=== PATIENT | male | born 1965 | race Caucasian/White ===

== ENCOUNTER 2024-03-07 00:49 | Day surgery (SDC) | payer BC, SELFPAY ==
[2024-03-05 15:32] VITALS: BMI 27.5
[2024-03-07 10:09] VITALS: BP 138/86; PULSE 77; RESP 18; TEMP 36.1; O2SAT 98; BMI 28.3
--- NOTE | 2024-03-07 10:17 | WPDANESEPPF ---
Anes - Initial Pre Proc Eval Procedure: Operation Date: 03/07/24 11:30 Proposed Procedures p Esophagogastroduodenoscopy - Burke Smith MD Date/Time: 03/07/24 10:17 Surgeon: Burke Smith MD Pre Op Diagnosis: Dysphagia Patient Data Age: 58 Gender: M Height: 1.65 m Weight: 77.4 kg Last Vital Signs Temp 36.1 C L 03/07/24 10:09 Pulse 77 03/07/24 10:09 Resp 18 03/07/24 10:09 BP 138/86 03/07/24 10:09 Pulse Ox 98 03/07/24 10:09 O2 Del Method Room Air 03/07/24 10:09 Allergies Allergy/AdvReac Type Severity Reaction Status Date / Time No Known Allergies Allergy Verified 03/07/24 10:08 Home Medications Medication Instructions Recorded Confirmed Type cyclobenzaprine 10 mg tablet 10 mg PO HS 03/05/24 03/07/24 History Patient hx anesthesia problems: none Family hx anesthesia problems: none Results Review: All pre-operative results and documents have been reviewed as part of the pre-operative evaluation. [facility] Past Medical History Medical History (Updated 03/07/24 @ 10:17 by Roberth Andrade MD) Overweight Social History Social History Smoking status: Never smoker Alcohol intake: current Substance use: never Substance use type: does not use Living arrangements: with family Spiritual care concerns: No Anes - Eval Final PreProcedure Day of Procedure 03/07/24 10:17 Patient weight: overweight Heart: regular rate and rhythm Lungs: clear to auscultation Airway: Mallampati scale class II Neurological: alert and oriented Last oral intake: >/= 8 hours ASA classification: II Emergent: no Anesthetic plan: proceed Anesthesia type and monitoring: general GIVS and standard monitoring Results Review: All pre-operative results and documents have been reviewed as part of the pre-operative evaluation. Informed Consent: The patient's anesthetic plan and its attendant risks and benefits were discussed with the patient/family/POA. Questions were solicited and answers provided to the satisfaction of the patient/family/POA.
[2024-03-07] MEDS: LACTATED RINGERS 1,000 ML 150 ML IV CONT (10:23)
--- NOTE | 2024-03-07 10:41 | PM.HPGS ---
History of Present Illness History of Present Illness Consent: Risks, benefits, and alternatives have been discussed and questions answered. Patient agrees to proceed with procedure. Chief complaint: Dysphagia Narrative: Ariel Jiang is a 58 year old male here for first EGD, intermittent dysphagia, he is not taking any ppi. Review of Systems Review of Systems: All systems reviewed & are unremarkable except as noted in HPI and below PMFSH Past Medical History Medical History (Updated 03/07/24 @ 10:42 by Burke Smith MD) Dysphagia Overweight Social History Social History Smoking status: Never smoker Alcohol intake: current Substance use: never Substance use type: does not use Living arrangements: with family Spiritual care concerns: No Meds Home Medications and Allergies Home Medications Medication Instructions Recorded Confirmed Type cyclobenzaprine 10 mg tablet 10 mg PO HS 03/05/24 03/07/24 History Allergies Allergy/AdvReac Type Severity Reaction Status Date / Time No Known Allergies Allergy Verified 03/07/24 10:08 Vital Signs Vital Signs - 24 hr 03/07/24 10:09 Temperature 97 F L Pulse Rate 77 Respiratory Rate 18 Blood Pressure 138/86 Pulse Oximetry 98 Oxygen Delivery Room Air Exam Const: General: comfortable and no acute distress HENMT: Face/Nose/Sinus: Normal nares present Eyes: General: appearance normal, both eyes and all related structures Neck: Neck: no JVD Resp: Auscultation: clear to auscultation bilaterally Cardio: Rate: regular rate Rhythm: regular rhythm GI: Inspection: non-distended GI Palp: Yes Soft to palpation Skin: General skin exam: normal color Neuro: General: gait normal Speech: normal speech Extrem: General: normal to inspection Psych: Mental Status: mental status grossly normal Assessment and Plan Assessment and plan (1) Dysphagia: Code(s): R13.10 - Dysphagia, unspecified Status: Acute Assessment and Plan: egd to assess
[2024-03-07 10:55] VITALS: BP 119/70; PULSE 80; RESP 17; O2SAT 94
[2024-03-07 11:05] VITALS: BP 104/66; PULSE 74; RESP 18; O2SAT 94
[2024-03-07 11:15] VITALS: BP 118/71; PULSE 69; RESP 18; O2SAT 94
== END 2024-03-07 11:23 | disposition home or self-care (01) ==
PROVIDERS: PCP Internal Medicine; Visit Provider Internal Medicine Gastroenterology
PROC: 0DJ08ZZ Inspection of Upper Intestinal Tract, Via Natural or Artificial Opening Endoscopic (ICD-10-PCS; CPT 43235; principal; 2024-03-07 11:30)
DX: K20.0 Eosinophilic esophagitis (principal); K22.2 Esophageal obstruction; K44.9 Diaphragmatic hernia without obstruction or gangrene; K29.70 Gastritis, unspecified, without bleeding
CPT/HCPCS: 43249; 43239; 88305; C1726; J2704; J7120

== ENCOUNTER 2024-12-25 02:31 | Day surgery (SDC) | payer OTHER, SELFPAY ==
[2024-12-11 14:33] VITALS: BMI 29.9
--- OUTSIDE RECORDS SUMMARY | 2024-12-25 02:33 | XMS_ITS | Continuity of Care Document ---
Author Organization [facility] Address [address] [place] [address] [place] [address] Phone Care Team Providers Care Electrical Prospecting Observer Name Role Phone Mya HERNANDEZ FACS, Terrance Unavailable Unavailab le Allergies, Adverse Reactions, Alerts Substance Reaction Status Criticality No Known allergies Procedures Procedure Date Office/outpatient Visit, [facility] Advance Directives Directive Yes / No Effective Date File Name Resuscitation Not Answered N/A N/A Life Support Not Answered N/A N/A Intubation Not Answered N/A N/A Antibiotics Not Answered N/A N/A IV Fluid Support Not Answered N/A N/A Tube Feed Not Answered N/A N/A Other Directive N/A N/A WARNING:The information contained in this section is historical and is provided for information only and does not constitute a legal document or any assurance that the information is still accurate. Please verify the information with the vera of the legal document before using it for clinical purposes. Encounters Encounter Description Practice Location Reason(s) For Visit Diagnoses Date Provider Providers Copied on Encounter Office/outpat ient Visit, [facility], [address] [place] [address] [address], [place], [place], [id number], tel:[phone] SEC Julian N Lindbergh CORNEAL ULCER NOS 1 Mya Carlos. [address] [place] [address] Drive, [address], [place], [place], [id number], . tel:[phone] Referring Provider: Virginia Sanchez, [facility] [address], [address]. tel:[phone] Family History Family Member Type Diagnosis Age At Onset Problem (finding) Grandmother (p) Problem (finding) glaucoma Payers Payer name Insurance type Covered alliance party ID Javier leyva(s) [facility] CI [id number] Social History Type Description Quantity Date Captured Comments Alcohol Use Details No Caffeine Use Details No Tobacco Use Status No Information Smoking Status No Information Sex Male Chief Complaint And Reason For Visit No Information Reason For Referral Reason For Referral No Information History Of Present Illness Encounter Date Complaint History Of Prese nt Illness No Information Functional Status Date Functional Assessmen t No Information Instructions Date Instruction Additional Infor [place] - TUE WITH DR. FRANKLIN FOR FOLLO WUP Related to CORNEAL ULCER NOS CORNEAL ULCER , OD - will treat with meds. LIKELY STAPH BACTERIA - VIGAMOX 3 GTTS Q 1 MIN APART EVERY 2 HOURS, SCOPALAMINE NOT RECOMMENDED. 1 DROP HOMEATROPINE GIVEN OD PRIOR TO LEAVING THE OFFICE. CULTURE TODAY. REC THROWING OUT CONTACT LENSES, ABD D/C WEAR UNTIL OTHERWISE SPECIFIED. Related to CORNEAL ULCER NOS Assessments Type Assessment Date No Information Patient Care Teams Name Effective Dates (start - stop) Status Members No Information
--- OUTSIDE RECORDS SUMMARY | 2024-12-25 02:33 | XMS_ITS | Encounter Summary ---
Author Organization [facility] Address [address] [place] [address] Care Team Providers Care Dog Raiser Name Role Phone Redd Kumar MD Unavailable [phone] Nikos Lea MD Primary Care Provider [phone] Encounter Details Date Type Department Care Team (Late st Contact Info) Description 02/21/[address] [facility] Care Pathology Lab [address] [place] [address] Deanna Parks MD [address] [place] [address] Elevated prostate specific antigen (PSA) Social History Tobacco Use Types Packs/Day Years Used Date Smoking Tobacco: Never Assessed Sex and Gender Information Value Date Recorded Sex Assigned at Not on file Legal Sex Male 4:48 PM CDT Gender Identity Not on file Sexual Orientation Not on file documented as of this encounter Plan of Treatment Not on file documented as of this encounter Visit Diagnoses Diagnosis Elevated prostate specific antigen (PSA) documented in this encounter Care Teams Dog Raiser Relationship Specialty Start Date End Date Nikos Lea MD [address] [place] [address] PCP - General Internal Medicine 06/26/20 Redd Kumar MD [address] [place] [address] Neurology 06/25/20 documented as of this encounter
--- OUTSIDE RECORDS SUMMARY | 2024-12-25 02:33 | XMS_ITS | Encounter Summary ---
Author Organization [facility] Address [address] [place] [address] Care Team Providers Care Dip Stand Loader Name Role Phone Redd Kumar MD Unavailable [phone] Nikos Lea MD Primary Care Provider [phone] Encounter Details Date Type Department Care Team (Late st Contact Info) Description 08/05/2023 Lab Requisition [facility] - DermPath Lab [address] [facility], [place] [address] Bruno Means Jr., MD [address] [facility] [address] [place] [address] Social History Tobacco Use Types Packs/Day Years Used Date Smoking Tobacco: Never Smokeless Tobacco: Never Alcohol Use Standard Drinks/Week Comments Not Currently 0 (1 standard drink = 0.6 oz pur e alcohol) Sex and Gender Information Value Date Recorded Sex Assigned at Not on file Legal Sex Male 4:48 PM CDT Gender Identity Not on file Sexual Orientation Not on file documented as of this encounter Plan of Treatment Not on file documented as of this encounter Procedures Procedure Name Priority Date/Time Associated Diagnosis Comments DERMATOPATHOLOGY Routine 08/04/2023 12:0 0 AM TEACHER PRIVATE documented in this encounter Results * DERMATOPATHOLOGY (08/04/2023 12:00 AM TEACHER PRIVATE) Case Report Dermatopathology Report Case: [id number] Authorizing Provider: Bruno Means Jr., MD Collected: 08/04/2023 12:00 AM Ordering Location: [facility] DermPath Lab Received: 08/05/2023 12:38 PM Pathologist: Faith Cooley MD Specimen: Skin, left central lateral neck 1:25 PM [facility] DERMATOPATHOLOGY LABORATORY Final Diagnosis Specimen A. SKIN, left central lateral neck: BASAL CELL CARCINOMA (C44.41) NOT PRESENT AT MARGIN DERMAL SCAR (L90.5) 1:25 PM [facility] DERMATOPATHOLOGY LABORATORY Clinical History Basal Cell Carcinoma. Check Margins. 1:25 PM [facility] DERMATOPATHOLOGY LABORATORY Gross Description Specimen A: Received is one formalin filled container labeled with the patient's name and designated left central lateral neck.The specimen consists of an ellipse measuring [id number] mm and is oriented with the suture/notch at the 12 o'clock position labeled on the requisition as Superior. The 12 to 6 o'clock margin is inked green. The 6 o'clock to 12 o'clock margin is inked black. The 12 o'clock tip is submitted in cassette 1. The 6 o'clock tip is submitted in cassette 2. The remainder of the ellipse is serially sectioned and submitted in cassettes 3-4. Jar 0. 1:25 PM [facility] DERMATOPATHOLOGY LABORATORY Microscopic Description Specimen A. SKIN, left central lateral neck: Within the dermis there are aggregates of basaloid cells with a high nuclear to cytoplasmic ratio and peripheral palisading. This lesion is not present at the margin of the specimen. There are fibroblasts and collagen bundles oriented parallel to the skin surface with elongated blood vessels, some of which are oriented perpendicular to the skin surface. 1:25 PM [facility] DERMATOPATHOLOGY LABORATORY Disclaimer An external and internal positive and negative controls are appropriate for the histochemical, immunohistochemical and immunofluorescence stain(s) in this case (if any), except where stated explicitly. The performance characteristics of the stain(s) cited in this report were developed and its performance characteristic determined by the Dermatopathology Laboratory at [facility], directed by Dr. Shanna Reese. These tests need not be, and therefore are not, approved by the [place] Food and Drug Administration. The tests are used for clinical purposes. Billing Codes Specimen Charges Stain Charges 79239 1 12/27/202 3 1:25 PM TEACHER PRIVATE DERMATOPATHOLOGY LABORATORY Embedded Images 3 1:25 PM [facility] PRIVATE DERMATOPATHOLOGY LABORATORY Pathology/Cytolog y TISSUE SPECIMEN FROM SKIN / Unknown 08/04/2023 08/05/2023 12:38 PM TEACHER PRIVATE Bruno Means Jr., MD LAB - PATHOLOGY/CYTOLOG Y ORDERABLES Final Result DERMATOPATHOLOGY LABORATORY [facility] - Department of Dermatology [facility] [address] [place] [address], [address] [phone] documented in this encounter Visit Diagnoses Not on filedocumented in this encounter Care Teams Dip Stand Loader Relationship Specialty Start Date End Date Nikos Lea MD [address] [place] [address] PCP - General Internal Medicine 06/26/20 Redd Kumar MD [address] [place] [address] Neurology 06/25/20 documented as of this encounter
--- OUTSIDE RECORDS SUMMARY | 2024-12-25 02:33 | XMS_ITS | Clinical Summary ---
Author Organization [facility] Address [address] [facility] [place] [address] Care Team Providers Care Tool Profiling Machine Set Up Operator Name Role Phone Redd Kumar MD Unavailable [phone] Nikos Lea MD Primary Care Provider [phone] Source Comments [facility],non-owned Affiliates and Associated Physician Practices is amultiple site organization consisting of ambulatory clinics and hospital sitesin [place], [place], [place] and [place]. This disclosure is being madepursuant to the Care Everywhere program and may not contain all information available regarding this patient. Last updated 18.[employer] Allergies No known active allergies Medications * Be aware that medications may not be up to date on this document. Alwaysverify current medications with the patient. No known medications Family History Medical History Relation Name Comments Asthma Brother CVA Father High Cholesterol Father Thyroid Disease Mother Relation Name Status Comments Brother Father Mother Social History Tobacco Use Types Packs/Day Years Used Date Smoking Tobacco: Never Smokeless Tobacco: Never Alcohol Use Standard Drinks/Week Comments Not Currently 0 (1 standard drink = 0.6 oz pur e alcohol) Sex and Gender Information Value Date Recorded Sex Assigned at Not on file Legal Sex Male 4:48 PM CDT Gender Identity Not on file Sexual Orientation Not on file Last Filed Vital Signs Vital Sign Reading Time Taken Comments Blood Pressure 122/70 06/26/2020 10:34 AM TUNNEL FORM PLACING SUPERVISOR Pulse 68 06/26/2020 10:34 AM TUNNEL FORM PLACING SUPERVISOR Temperature - - Respiratory Rate 14 06/26/2020 10:34 AM TUNNEL FORM PLACING SUPERVISOR Oxygen Saturation 97% 06/26/2020 10:34 AM TUNNEL FORM PLACING SUPERVISOR Inhaled Oxygen Concentration - - Weight 76.7 kg (169 lb) 06/26/2020 10:34 AM TUNNEL FORM PLACING SUPERVISOR Height 165.1 cm (5' 5 ) 06/26/2020 10:34 AM TUNNEL FORM PLACING SUPERVISOR Body Mass Index 28.12 06/26/2020 10:34 AM TUNNEL FORM PLACING SUPERVISOR Plan of Treatment Health Maintenance Due Date Last Done Comments COLOGUARD (AGES 45-75) - COL ON CA SCREENING 1965 COLON MONITORING 1963 COLONOSCOPY - COLON CA SCREENING 1963 CT COLONOGRAPHY - COLON CA SCREENING 1965 Colorectal Cancer Screening 1963 FIT - COLON CA SCREENING 1963 FLEX SIG - COLON CA SCREENING 1963 LIPID TESTING 1963 HIV SCREENING 1978 HEPATITIS C SCREENING 08/04/1981 DTAP/TDAP/TD VACCINES (1 - Tdap) 1982 PNEUMOCOCCAL VACCINE 50+ (1 of 1 - PCV) 2013 ZOSTER VACCINE (1 of 2) 2013 SCREENING FOR DIABETES 06/26/2020 COVID-19 VACCINE (1 - 2023-2 5 season) 2024 DEPRESSION SCREENING 08/15/2024 INFLUENZA VACCINE (Season Ended) 2025 Respiratory Syncytial Virus (RSV) Vaccine Pt: or over 60 yrs (1 - 1-dose 75+ series) 2038 HEPATITIS B VACCINE Aged Out No longe r eligible based on patient's age to complete this topic HIB VACCINE Aged Out No longer eligi ble based on patient's age to complete this topic HPV VACCINE Aged Out No longer eligi ble based on patient's age to complete this topic MENINGOCOCCAL (Group B) VACC INE SHARED DECISION-MAKING Aged Out No longer eligibl e based on patient's age to complete this topic MENINGOCOCCAL GROUPS A/C/Y/W VACCINE Aged Out No longer eligible b ased on patient's age to complete this topic Insurance [employer] * Guarantor: AD SANCHEZ Account Type Relation to Patient Date of Phone Billing Address Personal/Family [address] [place] [address] [facility] SELF PAY NO INSURANCE Member Subscriber Plan / Payer (Ef fective for All Dates) Name:Ad Sanhcez Member ID:Not on file Relation to Subscriber:Not on file Name:AD SANCHEZ Subscriber ID:Not on file Address: [address] [place] [address] Payer ID:Not on file Group ID:Not on file Type:Self Pay Address: [place], [place] * Guarantor: AD SANCHEZ Account Type Relation to Patient Date of Phone Billing Address Personal/Family [address] [place] [address] [facility] SELF PAY NO INSURANCE Member Subscriber Plan / Payer (Ef fective for All Dates) Name:Ad Sanchez Member ID:Not on file Relation to Subscriber:Not on file Name:AD SANCHEZ Subscriber ID:Not on file Address: [address] [place] [address] Payer ID:Not on file Group ID:Not on file Type:Self Pay Address: [place], [place] * Guarantor: AD SANCHEZ Account Type Relation to Patient Date of Phone Billing Address Personal/Family [address] [place] [address] [facility] SELF PAY NO INSURANCE Member Subscriber Plan / Payer (Ef fective for All Dates) Name:Ad Sanchez Member ID:Not on file Relation to Subscriber:Not on file Name:AD SANCHEZ Subscriber ID:Not on file Address: [address] [address] Payer ID:Not on file Group ID:Not on file Type:Self Pay Address: [place], [place] * Guarantor: AD SANCHEZ Account Type Relation to Patient Date of Phone Billing Address Personal/Family 1965 [address] [address] Care Teams Tool Profiling Machine Set Up Operator Relationship Specialty Start Date End Date Nikos Lea MD [address] [place] [address] PCP - General Internal Medicine 06/26/20 Redd Kumar MD [address] [place] [address] Neurology 06/25/20
--- OUTSIDE RECORDS SUMMARY | 2024-12-25 02:33 | XMS_ITS | Encounter Summary ---
Author Organization [facility] Address [address] [facility] [place] [address] Care Team Providers Care Brickmason Supervisor Name Role Phone Redd Kumar MD Unavailable [phone] Nikos Lea MD Primary Care Provider [phone] Encounter Details Date Type Department Care Team (Late st Contact Info) Description 04/29/2023 Lab Requisition [facility] - DermPath Lab [address] [facility], [place] [id number] Bruno Means Jr., MD [address] [facility] [address] [place] [address] Social History Tobacco Use Types Packs/Day Years [...] Priority Date/Time Associated Diagnosis Comments DERMATOPATHOLOGY Routine 04/28/2023 12:0 0 AM CDT documented in this encounter Results * DERMATOPATHOLOGY (04/28/2023 12:00 AM CDT) Case Report Dermatopathology Report Case: [id number] Authorizing Provider: Bruno Means Jr., MD Collected: 04/28/2023 12:00 AM Ordering Location: [facility] DermPath Lab Received: 04/29/2023 09:33 AM Pathologist: Faith Cooley MD Specimen: Skin, left central lateral neck 3:28 PM T DERMATOPATHOLOGY LABORATORY Final Diagnosis Specimen A. SKIN, left central lateral neck: BASAL CELL CARCINOMA, NODULAR TYPE (C44.41) 3:28 PM T DERMATOPATHOLOGY LABORATORY Clinical History Basal Cell Carcinoma 3:28 PM CDT DERMATOPATHOLOGY LABORATORY Gross Description Specimen A: Received is one formalin filled container labeled with the patient's name and designated left central lateral neck. The specimen consists of a shave biopsy measuring 5x5x1 mm. Jar 0. 3:28 PM CDT DERMATOPATHOLOGY LABORATORY Microscopic Description Specimen A. SKIN, left central lateral neck: Within the dermis there are aggregates of basaloid cells with a high nuclear to cytoplasmic ratio and peripheral palisading. 3:28 PM CDT DERMATOPATHOLOGY LABORATORY Disclaimer An external and internal positive and negative controls are appropriate for the histochemical, immunohistochemical and immunofluorescence stain(s) in this case (if any), except where stated explicitly. The performance characteristics of the stain(s) cited in this report were developed and its performance characteristic determined by the Dermatopathology Laboratory at [facility], directed by Dr. Shanna Reese. These tests need not be, and therefore are not, approved by the [place] Food and Drug Administration. The tests are used for clinical purposes. Billing Codes Specimen Charges Stain Charges 11484 1 3:28 PM CDT DERMATOPATHOLOGY LABORATORY Embedded Images 3:28 PM CDT DERMATOPATHOLOGY LABORATORY Pathology/Cytolog y TISSUE SPECIMEN FROM SKIN / Unknown 04/28/2023 04/29/2023 9:33 AM CDT us Bruno Means Jr., MD LAB - PATHOLOGY/CYTOLOG Y ORDERABLES Final Result DERMATOPATHOLOGY LABORATORY [facility] - Department of Dermatology [address] [place], [place] [address] [phone] documented in this encounter Visit Diagnoses Not on filedocumented in this encounter Care Teams Brickmason Supervisor Relationship Specialty Start Date End Date Nikos Lea MD [address] [place] [address] PCP - General Internal Medicine 06/26/20 Redd Kumar MD [address] [place] [address] Neurology 06/25/20 documented as of this encounter
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
--- OUTSIDE RECORDS SUMMARY | 2024-12-25 02:33 | XMS_ITS | Referral Summary ---
Author Organization [facility] Address [address] [place] [id number] Care Team Providers Care Product Trainer Name Role Phone Nikos Lea MD Primary Care Provider + Nikos Lea MD Unavailable [phone] Allergies No known active allergies Medications cholecalciferol [...] (12/04/2020): Added automatically from request for surgery [id number] Encounter for screening colonoscopy 12/04/2020 Overview (12/04/2020): Added automatically from request for surgery [id number] Umbilical hernia without obstruction and without gangrene 12/28/2017 Overview (12/28/2017): Added automatically from request for surgery [id number] Basal cell carcinoma (BCC) of face 03/24/2017 [...] testicle 12/24/2015 Overview (11/19/2016): Pain in testicle Social History Tobacco Use Types Packs/Day Years Used Date Smoking Tobacco: Never Smokeless Tobacco: Never Alcohol Use Standard Drinks/Week Comments No 0 (1 standard drink = 0.6 oz pur e alcohol) Sex and Gender Information Value Date Recorded Sex Assigned at Not on file 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 Gender Identity Not on file Sexual Orientation [...] on file Medical Devices Implanted Type Area Paper Products Printer Device Identifier Shelf Expiration Date Model / Serial / Lot Patch Surgical Ventralex Sepra Sorbaflex Polypropylene Eptfe Small [place] Od1.7 In Monofilament Self Expand Strap Pocket Sterile Umbilical Hernia Repair - [id number] Implanted:Qty: 1 on 01/02/2018 by Nikos Dubose MD at [facility] N/A: Umbilical [employer] 06/11/2020 [id number] / / [id number] Insurance [employer] Advance Directives For more information, please contact: [phone] * Full Code (Latest Code Status on File) Date Activated Date Inactivated Comments 01/01/2021 8:01 AM 01/01/2021 2:08 PM Care Teams Product Trainer Relationship Specialty Start Date End Date Nikos Lea MD [address] [facility] [place] [id number] PCP - General 01/18/19 Nikos Lea MD [address] [place] [address] [place] [id number] Internal Medicine 01/01/19
[2024-12-25 12:24] VITALS: BP 126/80; PULSE 68; RESP 16; TEMP 36; O2SAT 98; BMI 28.3
[2024-12-25] MEDS: LACTATED RINGERS 1,000 ML 150 ML IV CONT (12:33)
--- NOTE | 2024-12-25 13:38 | PM.HPGS ---
History of Present Illness History of Present Illness Consent: Risks, benefits, and alternatives have been discussed and questions answered. Patient agrees to proceed with procedure. Chief complaint: Personal history of colon polyps, unspecified Narrative: Ariel Jiang is a 59 year old male with colon polyp about 5 years ago, also intermittent lower abdominal pain Review of Systems Review of Systems: All systems reviewed & are unremarkable except as noted in HPI and below PMFSH Past Medical History Medical History (Updated 11/07/24 @ 08:59 by Burke Smith MD) GERD (gastroesophageal reflux disease) Lower abdominal pain Colon polyp Esophageal ring Dysphagia Overweight Social History Social History Smoking status: Never smoker Alcohol intake: never Substance use: never Substance use type: does not use Living arrangements: with family Spiritual care concerns: No Meds Home Medications and Allergies Home Medications ?Medication ?Instructions ?Recorded ?Confirmed ?Type aspirin 81 mg tablet,delayed 81 mg PO DAILY 11/07/24 12/11/24 History release (Adult Low Dose Aspirin) cholecalciferol (vitamin D3) 50 50 mcg PO DAILY 11/07/24 12/11/24 History mcg (2,000 unit) capsule nkpprnge-syde-snusq acid 240 1 tablet PO DAILY 11/07/24 12/11/24 History mcg-vit K 120 iup-tbzknv-dbpv 293 tablet (Alive Men's 50 Plus Multivit (vit K)) Allergies Allergy/AdvReac Type Severity Reaction Status Date / Time No Known Allergies Allergy Verified 12/25/24 12:23 Vital Signs Vital Signs - 24 hr 12/25/24 12:24 Temperature 96.8 F L Pulse Rate 68 Respiratory Rate 16 Blood Pressure 126/80 Pulse Oximetry 98 Oxygen Delivery Room Air Exam Const: General: comfortable and no acute distress HENMT: Face/Nose/Sinus: Normal nares present Eyes: General: appearance normal, both eyes and all related structures Neck: Neck: no JVD Resp: Auscultation: clear to auscultation bilaterally Cardio: Rate: regular rate Rhythm: regular rhythm GI: Inspection: non-distended GI Palp: Yes Soft to palpation Skin: General skin exam: normal color Neuro: General: gait normal Speech: normal speech Extrem: General: normal to inspection Psych: Mental Status: mental status grossly normal Assessment and Plan Assessment and plan (1) Colon polyp: Code(s): K63.5 - Polyp of colon Status: Acute Assessment and Plan: colonoscopy (2) Lower abdominal pain: Code(s): R10.30 - Lower abdominal pain, unspecified Status: Acute
--- NOTE | 2024-12-25 13:39 | P.PNAN_ITS ---
Anes - Initial Pre Proc Eval Procedure: Operation Date: 12/25/24 13:30 Proposed Procedures p Colonoscopy - Burke Smith MD Date/Time: 12/25/24 13:39 Surgeon: Burke Smith MD Pre Op Diagnosis: Personal history of colon polyps, unspecified Patient Data Age: 59 Gender: M Height: 1.68 m Weight: 79.5 kg Last Vital Signs Temp 36.0 C L 12/25/24 12:24 Pulse 68 12/25/24 12:24 Resp 16 12/25/24 12:24 BP 126/80 12/25/24 12:24 Pulse Ox 98 12/25/24 12:24 O2 Del Method Room Air 12/25/24 12:24 Allergies Allergy/AdvReac Type Severity Reaction Status Date / Time No Known Allergies Allergy Verified 12/25/24 12:23 Home Medications ?Medication ?Instructions ?Recorded ?Confirmed ?Type aspirin 81 mg tablet,delayed 81 mg PO DAILY 11/07/24 12/11/24 History release (Adult Low Dose Aspirin) cholecalciferol (vitamin D3) 50 50 mcg PO DAILY 11/07/24 12/11/24 History mcg (2,000 unit) capsule brcidctd-erlu-xgiqf acid 240 1 tablet PO DAILY 11/07/24 12/11/24 History mcg-vit K 120 jwl-vwpylr-xqdx 293 tablet (Alive Men's 50 Plus Multivit (vit K)) Patient hx anesthesia problems: none Family hx anesthesia problems: none Results Review: All pre-operative results and documents have been reviewed as part of the pre- operative evaluation. [facility] Past Medical History Medical History GERD (gastroesophageal reflux disease) Lower abdominal pain Colon polyp Esophageal ring Dysphagia Overweight Social History Social History Smoking status: Never smoker Alcohol intake: never Substance use: never Substance use type: does not use Living arrangements: with family Spiritual care concerns: No Anes - Eval Final PreProcedure Day of Procedure 12/25/24 13:39 Patient weight: overweight Heart: regular rate and rhythm Lungs: clear to auscultation Airway: Mallampati scale class II Neurological: alert and oriented Last oral intake: >/= 8 hours ASA classification: II Emergent: no Anesthetic plan: proceed Anesthesia type and monitoring: general GIVS and standard monitoring Results Review: All pre-operative results and documents have been reviewed as part of the pre- operative evaluation. Informed Consent: The patient's anesthetic plan and its attendant risks and benefits were disc ussed with the patient/family/POA. Questions were solicited and answers provided to the satisfaction of the patient/family/POA.
[2024-12-25 13:53] VITALS: BP 97/83; PULSE 77; RESP 15; O2SAT 95
[2024-12-25 14:03] VITALS: BP 110/79; PULSE 70; RESP 16; O2SAT 97
[2024-12-25 14:13] VITALS: BP 109/76; PULSE 65; RESP 18; O2SAT 96
== END 2024-12-25 14:41 | disposition home or self-care (01) ==
PROVIDERS: PCP Internal Medicine; Referring Provider Internal Medicine Gastroenterology; Visit Provider Internal Medicine Gastroenterology
PROC: 0DJD8ZZ Inspection of Lower Intestinal Tract, Via Natural or Artificial Opening Endoscopic (ICD-10-PCS; CPT 45378; principal; 2024-12-25 13:30)
DX: Z12.11 Encounter for screening for malignant neoplasm of colon (principal); D12.2 Benign neoplasm of ascending colon; K57.30 Diverticulosis of large intestine without perforation or abscess without bleeding; K21.9 Gastro-esophageal reflux disease without esophagitis; Z79.82 Long term (current) use of aspirin; Z87.19 Personal history of other diseases of the digestive system
CPT/HCPCS: 45385; 88305; J2003; J2704; J7120